=== PATIENT | female | born 1945 | race African-American/Black ===

== ENCOUNTER 2019-11-28 15:13 | Inpatient (IN) ==
[2019-11-28] MEDS ORDERED: ZALEPLON 5 MG CAPSULE PO PRN (16:21)
[2019-11-28] MEDS ORDERED: ONDANSETRON 4 MG/2 ML VIAL IV PRN (16:21)
[2019-11-28] MEDS ORDERED: ACETAMINOPHEN 325 MG TABLET PO PRN (16:21)
[2019-11-28] MEDS ORDERED: DOCUSATE SODIUM 100 MG CAPSULE PO PRN (16:21)
[2019-11-28] MEDS ORDERED: ALUMINUM/MAGNES/SIMETH MAX STR 30 ML UDCUP PO PRN (16:21)
[2019-11-28] MEDS: hydrALAZINE 20 MG/1 ML VIAL IV PRN ×2 (17:03→20:50)
[2019-11-28] MEDS ORDERED: NITROGLYCERIN SL 0.4 MG TABLET SL PRN (18:32)
[2019-11-28] MEDS ORDERED: niCARdipine INJ 50 MG in SODIUM CHLORIDE 0.9% 230 ML IV PRN (21:34)
[2019-11-28] MEDS ORDERED: niCARdipine 25 MG/10 ML VIAL IV ONE (21:46)
[2019-11-28] MEDS: BUMETANIDE 1 MG TABLET PO SCH (22:44)
[2019-11-29 00:39] LABS: Basophils # 0.1 10*3/uL (0.0-0.2); Basophils % 0.7 % (0.0-0.8); Eosinophils % 0.3 % (0.00-10.9); Hematocrit 28.7 VOL% (35.7-47.0); Hemoglobin 8.9 GM/DL (12.0-16.0); Immature Granulocytes % 0.9 %; Immature Granulocytes Absolute 0.11 #; Lymphocytes # 0.7 10*3/uL (1.4-4.0); Lymphocytes % 5.8 % (21.3-54.2); Mean Corpuscular Volume 80.2 FL (87-102); Mean Platelet Volume 9.5 FL (9.6-12.0); Monocytes % 3.8 % (1.7-12.7); Neutrophils % 88.5 % (38.7-73.9); Platelet Count 275 T/CUMM (130-400); Red Blood Count 3.58 MC/CUMM (3.8-5.5); Red Cell Distribution Width 18.4 % (9.3-17.3); White Blood Count 11.6 T/CUMM (4-12)
[2019-11-29 00:47] LABS: INR 0.9; PT Patient Result 10.3 SECS (9.6-12.2)
[2019-11-29 00:59] LABS: Albumin 3.7 G/DL (3.4-5.0); Bilirubin,Total 0.4 MG/DL (0.2-1.0); Calcium 9.4 MG/DL (8.5-10.1); Osmolality,Calculated 284.2 MOS/KG (273-304); Total Protein 8.1 G/DL (6.4-8.3)
[2019-11-29] MEDS ORDERED: ceFAZolin 1,000 MG in SYRINGE 1 EACH IV ONE (06:00)
[2019-11-29] MEDS ORDERED: VANCOMYCIN INJ 1,000 MG in SODIUM CHLORIDE 0.9% 250 ML IV ONE (06:00)
[2019-11-29] MEDS ORDERED: HEPARIN 5,000 UNIT/1 ML VIAL ONE (08:32)
[2019-11-29] MEDS ORDERED: BUPIVACAINE 0.25% /EPI 10 ML VIAL ONE (08:32)
[2019-11-29] MEDS ORDERED: LIDOCAINE 1%/EPI INJ 20 ML VIAL ONE (08:33)
[2019-11-29] MEDS ORDERED: LEVOTHYROXINE 100 MCG TABLET PO SCH (09:00)
[2019-11-29] MEDS ORDERED: fentaNYL 100 MCG/2 ML VIAL ONE (10:00)
[2019-11-29] MEDS ORDERED: propofoL 200 MG/20 ML VIAL IV ONE (10:00)
[2019-11-29] MEDS ORDERED: MIDAZOLAM 2 MG/2 ML VIAL ONE (10:00)
[2019-11-29 11:01] LABS: Hepatitis B Core IgM Quant 0.13 Index; Hepatitis B Surface Ag Quant < 0.10 Index; Hepatitis B Surface Ag Result Negative (Negative); Hepatitis C Virus Ab Quant 0.03 Index; Hepatitis C Virus Ab Result Negative (Negative)
[2019-11-29] MEDS: ISOSORBIDE MONONITRATE 60 MG TABLET PO SCH (11:05)
[2019-11-29] MEDS: BUMETANIDE 1 MG TABLET PO SCH ×2 (11:05→21:20)
[2019-11-29] MEDS: ASPIRIN EC 81 MG TABLET PO SCH (11:06)
[2019-11-29] MEDS: FUROSEMIDE 40 MG TABLET PO SCH (11:06)
[2019-11-29] MEDS: PANTOPRAZOLE 40 MG TABLET PO SCH (11:06)
[2019-11-29] MEDS ORDERED: HEPARIN 10,000 UNIT/10 ML VIAL IV SCH (14:00)
[2019-11-30 05:48] LABS: Basophils # 0.1 10*3/uL (0.0-0.2); Basophils % 0.7 % (0.0-0.8); Eosinophils # 0.2 10*3/uL (0.0-0.87); Eosinophils % 2.7 % (0.00-10.9); Hemoglobin 8.2 GM/DL (12.0-16.0); Immature Granulocytes % 0.4 %; Immature Granulocytes Absolute 0.03 #; Lymphocytes # 0.8 10*3/uL (1.4-4.0); Lymphocytes % 11.4 % (21.3-54.2); Mean Corpuscular HGB Conc 31.5 GM/DL (32-36); Mean Platelet Volume 10.7 FL (9.6-12.0); Monocytes % 8.9 % (1.7-12.7); Neutrophils % 75.9 % (38.7-73.9); Platelet Count 262 T/CUMM (130-400); Red Blood Count 3.25 MC/CUMM (3.8-5.5); Red Cell Distribution Width 18.6 % (9.3-17.3); White Blood Count 7.3 T/CUMM (4-12)
[2019-11-30 06:09] LABS: Calcium 8.8 MG/DL (8.5-10.1); Osmolality,Calculated 277.1 MOS/KG (273-304)
[2019-11-30] MEDS: BUMETANIDE 1 MG TABLET PO SCH ×2 (08:34→20:20)
[2019-11-30] MEDS: PANTOPRAZOLE 40 MG TABLET PO SCH (08:34)
[2019-11-30] MEDS: ISOSORBIDE MONONITRATE 60 MG TABLET PO SCH (08:35)
[2019-11-30] MEDS: FUROSEMIDE 40 MG TABLET PO SCH (08:35)
[2019-11-30] MEDS: ASPIRIN EC 81 MG TABLET PO SCH (08:35)
[2019-12-01] MEDS ORDERED: LEVOTHYROXINE 100 MCG TABLET PO SCH (06:30)
[2019-12-01 07:05] LABS: Basophils # 0.1 10*3/uL (0.0-0.2); Basophils % 0.9 % (0.0-0.8); Eosinophils # 0.3 10*3/uL (0.0-0.87); Eosinophils % 4.4 % (0.00-10.9); Hematocrit 29.4 VOL% (35.7-47.0); Hemoglobin 9.2 GM/DL (12.0-16.0); Immature Granulocytes % 0.5 %; Immature Granulocytes Absolute 0.03 #; Lymphocytes # 1.4 10*3/uL (1.4-4.0); Lymphocytes % 20.8 % (21.3-54.2); Mean Corpuscular HGB Conc 31.3 GM/DL (32-36); Mean Corpuscular Volume 79.2 FL (87-102); Mean Platelet Volume 10.5 FL (9.6-12.0); Monocytes % 10.9 % (1.7-12.7); Neutrophils % 62.5 % (38.7-73.9); Platelet Count 245 T/CUMM (130-400); Red Blood Count 3.71 MC/CUMM (3.8-5.5); Red Cell Distribution Width 18.3 % (9.3-17.3); White Blood Count 6.6 T/CUMM (4-12)
[2019-12-01 07:25] LABS: Calcium 9.3 MG/DL (8.5-10.1); Osmolality,Calculated 262.9 MOS/KG (273-304)
[2019-12-01] MEDS ORDERED: amLODIPine 2.5 MG TABLET PO SCH (09:00)
[2019-12-01] MEDS: ASPIRIN EC 81 MG TABLET PO SCH (13:11)
[2019-12-01] MEDS: FUROSEMIDE 40 MG TABLET PO SCH (13:11)
[2019-12-01] MEDS: ISOSORBIDE MONONITRATE 60 MG TABLET PO SCH (13:11)
[2019-12-01 14:51] VITALS: BP 150/92
== END 2019-12-01 15:24 | disposition home health service (06) | DRG 291 ==
LOC: SUATTDRO 15:31 → N.5E 15:31 → N.ICU 21:42 → N.5E 11-29 14:41
PROVIDERS: ADMIT Internal Medicine; ATTEND Internal Medicine Cardiovascular Disease

== ENCOUNTER 2022-01-22 06:58 | Inpatient (IN) ==
[~2022-01-22 06:58] MED LIST: VANCOMYCIN 1,000 MG VIAL ONE
[2022-01-22] MEDS ORDERED: HEPARIN 5,000 UNIT/1 ML VIAL ONE (07:27)
[2022-01-22] MEDS ORDERED: LIDOCAINE 1%/EPI INJ 20 ML VIAL ONE (07:29)
[2022-01-22] MEDS ORDERED: BUPIVACAINE MPF 0.25% 30 ML VIAL ONE (07:29)
[2022-01-22 07:30] LABS: Basophils # 0.1 10*3/uL (0.0-0.2); Basophils % 0.8 % (0.0-0.8); Eosinophils # 0.2 10*3/uL (0.0-0.87); Eosinophils % 2.7 % (0.00-10.9); Hematocrit 31.7 VOL% (35.7-47.0); Hemoglobin 10.3 GM/DL (12.0-16.0); Immature Granulocytes % 0.5 %; Immature Granulocytes Absolute 0.03 #; Lymphocytes # 2.1 10*3/uL (1.4-4.0); Mean Corpuscular HGB Conc 32.5 GM/DL (32-36); Mean Corpuscular Volume 88.1 FL (87-102); Mean Platelet Volume 10.3 FL (9.6-12.0); Monocytes # 0.7 10*3/uL (0.11-0.8); Monocytes % 10.4 % (1.7-12.7); Neutrophils % 51.6 % (38.7-73.9); Platelet Count 189 T/CUMM (130-400); Red Cell Distribution Width 16.3 % (9.3-17.3); White Blood Count 6.3 T/CUMM (4-12)
[2022-01-22 07:56] LABS: Calcium 9.5 MG/DL (8.5-10.1); Osmolality,Calculated 283.2 MOS/KG (273-304); Potassium 3.3 MMOL/L (3.5-5.1)
[2022-01-22] MEDS ORDERED: fentaNYL 100 MCG/2 ML VIAL ONE (08:28)
[2022-01-22] MEDS ORDERED: SODIUM CHLORIDE 0.9% 250 ML IV ONE (08:28)
[2022-01-22] MEDS ORDERED: ETOMIDATE 40 MG/20 ML VIAL IV ONE (08:28)
[2022-01-22] MEDS ORDERED: propofoL 200 MG/20 ML VIAL IV ONE (08:28)
[2022-01-22] MEDS ORDERED: LIDOCAINE 2% 5 ML VIAL ONE (08:28)
[2022-01-22] MEDS ORDERED: MIDAZOLAM 2 MG/2 ML VIAL ONE (08:28)
[2022-01-22] MEDS ORDERED: GLUCAGON 1 MG VIAL IM PRN (11:41)
[2022-01-22] MEDS ORDERED: ONDANSETRON 4 MG/2 ML VIAL IV PRN (11:41)
[2022-01-22] MEDS ORDERED: DEXTROSE 10% 250 ML BAG IV PRN (11:47)
[2022-01-22] MEDS ORDERED: POTASSIUM CHLORIDE 20 MEQ TABLET PO ONE (12:06)
[2022-01-22] MEDS ORDERED: HEPARIN LOCK FLUSH 500 UNIT/5 ML SYRINGE IV STA (13:06)
[2022-01-22] MEDS ORDERED: HEPARIN LOCK FLUSH 500 UNIT/5 ML SYRINGE IV ONE (13:07)
[2022-01-22] MEDS: SODIUM CHLORIDE 0.9% 250 ML IV SCH (13:21)
[2022-01-22 13:48] LABS: Free T4 (Free Thyroxine) 1.01 NG/DL (0.76-1.46); Thyroid Stimulating Hormone 2.23 uIU/ml (0.358-3.74)
[2022-01-23] MEDS: ACETAMINOPHEN 325 MG TABLET PO PRN ×2 (04:17→12:54)
[2022-01-23 05:31] LABS: Basophils # 0.1 10*3/uL (0.0-0.2); Basophils % 1.2 % (0.0-0.8); Eosinophils # 0.2 10*3/uL (0.0-0.87); Eosinophils % 3.6 % (0.00-10.9); Hematocrit 31.9 VOL% (35.7-47.0); Hemoglobin 10.4 GM/DL (12.0-16.0); Immature Granulocytes % 0.7 %; Immature Granulocytes Absolute 0.04 #; Lymphocytes # 1.6 10*3/uL (1.4-4.0); Lymphocytes % 27.7 % (21.3-54.2); Mean Corpuscular HGB Conc 32.6 GM/DL (32-36); Mean Corpuscular Volume 87.9 FL (87-102); Mean Platelet Volume 11.4 FL (9.6-12.0); Monocytes # 0.6 10*3/uL (0.11-0.8); Monocytes % 10.6 % (1.7-12.7); Neutrophils % 56.2 % (38.7-73.9); Platelet Count 202 T/CUMM (130-400); Red Blood Count 3.63 MC/CUMM (3.8-5.5); Red Cell Distribution Width 16.1 % (9.3-17.3); White Blood Count 5.8 T/CUMM (4-12)
[2022-01-23 05:47] LABS: Calcium 9.2 MG/DL (8.5-10.1); Osmolality,Calculated 281.5 MOS/KG (273-304); Potassium 4.2 MMOL/L (3.5-5.1)
[2022-01-23] MEDS: PANTOPRAZOLE 40 MG TABLET PO SCH (06:08)
[2022-01-23] MEDS: SODIUM CHLORIDE 0.9% 250 ML IV SCH (09:38)
[2022-01-23] MEDS ORDERED: HEPARIN 10,000 UNIT/10 ML VIAL IV SCH (12:00)
[2022-01-24] MEDS: PANTOPRAZOLE 40 MG TABLET PO SCH (05:35)
[2022-01-24 05:41] LABS: Basophils # 0.1 10*3/uL (0.0-0.2); Basophils % 0.9 % (0.0-0.8); Eosinophils # 0.2 10*3/uL (0.0-0.87); Hematocrit 31.8 VOL% (35.7-47.0); Hemoglobin 10.4 GM/DL (12.0-16.0); Immature Granulocytes % 0.4 %; Immature Granulocytes Absolute 0.02 #; Lymphocytes # 1.3 10*3/uL (1.4-4.0); Lymphocytes % 22.5 % (21.3-54.2); Mean Corpuscular HGB Conc 32.7 GM/DL (32-36); Mean Corpuscular Volume 88.3 FL (87-102); Mean Platelet Volume 11.1 FL (9.6-12.0); Monocytes # 0.7 10*3/uL (0.11-0.8); Monocytes % 12.3 % (1.7-12.7); Neutrophils % 60.9 % (38.7-73.9); Platelet Count 186 T/CUMM (130-400); Red Cell Distribution Width 16.2 % (9.3-17.3); White Blood Count 5.6 T/CUMM (4-12)
[2022-01-24] MEDS: SODIUM CHLORIDE 0.9% 250 ML IV SCH (05:56)
[2022-01-24 05:58] LABS: Calcium 9.5 MG/DL (8.5-10.1); Osmolality,Calculated 270.5 MOS/KG (273-304); Potassium 3.7 MMOL/L (3.5-5.1)
[2022-01-24] MEDS: ACETAMINOPHEN 325 MG TABLET PO PRN ×2 (08:54→20:42)
[2022-01-25] MEDS: PANTOPRAZOLE 40 MG TABLET PO SCH (05:28)
[2022-01-25] MEDS: SODIUM CHLORIDE 0.9% 250 ML IV SCH ×3 (09:07→23:11)
[2022-01-25 10:06] LABS: Basophils # 0.1 10*3/uL (0.0-0.2); Basophils % 1.1 % (0.0-0.8); Eosinophils # 0.1 10*3/uL (0.0-0.87); Eosinophils % 1.3 % (0.00-10.9); Hematocrit 30.7 VOL% (35.7-47.0); Hemoglobin 10.2 GM/DL (12.0-16.0); Immature Granulocytes % 0.3 %; Immature Granulocytes Absolute 0.02 #; Lymphocytes # 1.1 10*3/uL (1.4-4.0); Lymphocytes % 18.5 % (21.3-54.2); Mean Corpuscular HGB Conc 33.2 GM/DL (32-36); Mean Corpuscular Volume 87.7 FL (87-102); Mean Platelet Volume 10.6 FL (9.6-12.0); Monocytes # 0.5 10*3/uL (0.11-0.8); Monocytes % 8.6 % (1.7-12.7); Neutrophils % 70.2 % (38.7-73.9); Platelet Count 184 T/CUMM (130-400); Red Cell Distribution Width 16.3 % (9.3-17.3); White Blood Count 6.2 T/CUMM (4-12)
[2022-01-25 10:24] LABS: Calcium 9.6 MG/DL (8.5-10.1); Osmolality,Calculated 270.8 MOS/KG (273-304); Potassium 4.4 MMOL/L (3.5-5.1)
[2022-01-25 10:39] LABS: % Iron Saturation 28.1 % (18-50)
[2022-01-25 11:08] LABS: Platelet Estimate Adequate
[2022-01-25] MEDS: ACETAMINOPHEN 325 MG TABLET PO PRN (16:43)
[2022-01-25] MEDS: MEGESTROL 40 MG TABLET PO SCH (20:34)
[2022-01-26 05:27] LABS: Basophils # 0.1 10*3/uL (0.0-0.2); Basophils % 1.1 % (0.0-0.8); Eosinophils # 0.2 10*3/uL (0.0-0.87); Eosinophils % 3.3 % (0.00-10.9); Hematocrit 29.7 VOL% (35.7-47.0); Hemoglobin 9.7 GM/DL (12.0-16.0); Immature Granulocytes % 0.5 %; Immature Granulocytes Absolute 0.03 #; Lymphocytes # 1.6 10*3/uL (1.4-4.0); Lymphocytes % 25.7 % (21.3-54.2); Mean Corpuscular HGB Conc 32.7 GM/DL (32-36); Mean Corpuscular Volume 86.8 FL (87-102); Mean Platelet Volume 10.8 FL (9.6-12.0); Monocytes # 0.7 10*3/uL (0.11-0.8); Monocytes % 11.2 % (1.7-12.7); Neutrophils % 58.2 % (38.7-73.9); Platelet Count 213 T/CUMM (130-400); Red Blood Count 3.42 MC/CUMM (3.8-5.5); White Blood Count 6.4 T/CUMM (4-12)
[2022-01-26 05:43] LABS: Calcium 9.5 MG/DL (8.5-10.1); Osmolality,Calculated 281.2 MOS/KG (273-304); Potassium 4.1 MMOL/L (3.5-5.1)
[2022-01-26] MEDS: PANTOPRAZOLE 40 MG TABLET PO SCH (05:51)
[2022-01-26] MEDS: MEGESTROL 40 MG TABLET PO SCH (13:35)
[2022-01-26] MEDS: ACETAMINOPHEN 325 MG TABLET PO PRN (13:37)
[2022-01-26 13:56] LABS: Basophils # 0.1 10*3/uL (0.0-0.2); Basophils % 0.8 % (0.0-0.8); Eosinophils # 0.1 10*3/uL (0.0-0.87); Eosinophils % 0.8 % (0.00-10.9); Hematocrit 32.1 VOL% (35.7-47.0); Hemoglobin 10.5 GM/DL (12.0-16.0); Immature Granulocytes % 2.2 %; Immature Granulocytes Absolute 0.14 #; Lymphocytes # 0.8 10*3/uL (1.4-4.0); Lymphocytes % 13.1 % (21.3-54.2); Mean Corpuscular HGB Conc 32.7 GM/DL (32-36); Mean Corpuscular Volume 87.5 FL (87-102); Mean Platelet Volume 10.5 FL (9.6-12.0); Monocytes # 0.5 10*3/uL (0.11-0.8); Monocytes % 8.1 % (1.7-12.7); Platelet Count 230 T/CUMM (130-400); Red Blood Count 3.67 MC/CUMM (3.8-5.5); Red Cell Distribution Width 16.2 % (9.3-17.3); White Blood Count 6.3 T/CUMM (4-12)
[2022-01-26 17:06] VITALS: BP 123/75
== END 2022-01-26 16:50 | disposition home health service (06) | DRG 264 ==
LOC: N.SDSINP 06:58 → N.OR 06:58 → N.SDSINP 07:00 → SUATTDRO 11:41 → N.TELES 13:50
PROVIDERS: ADMIT Internal Medicine; ATTEND Internal Medicine
PROC: VAVDCFI (2022-01-22 08:04)

== ENCOUNTER 2022-02-06 09:55 | Inpatient (IN) ==
[2022-02-06] MEDS ORDERED: ASPIRIN 325 MG TABLET PO STA (11:20)
[2022-02-06 11:26] LABS: Basophils # 0.1 10*3/uL (0.0-0.2); Basophils % 0.8 % (0.0-0.8); Eosinophils # 0.1 10*3/uL (0.0-0.87); Eosinophils % 1.4 % (0.00-10.9); Hematocrit 26.4 VOL% (35.7-47.0); Hemoglobin 8.8 GM/DL (12.0-16.0); Immature Granulocytes % 0.5 %; Immature Granulocytes Absolute 0.04 #; Lymphocytes # 1.4 10*3/uL (1.4-4.0); Lymphocytes % 16.2 % (21.3-54.2); Mean Corpuscular HGB Conc 33.3 GM/DL (32-36); Mean Platelet Volume 10.4 FL (9.6-12.0); Monocytes # 0.8 10*3/uL (0.11-0.8); Monocytes % 9.3 % (1.7-12.7); NRBC # 0.03 10*3/uL; Neutrophils % 71.8 % (38.7-73.9); Platelet Count 321 T/CUMM (130-400); Red Cell Distribution Width 19.2 % (9.3-17.3); White Blood Count 8.3 T/CUMM (4-12)
[2022-02-06 11:40] LABS: Bilirubin,Total 1.5 MG/DL (0.20-1.00); Calcium 9.1 MG/DL (8.5-10.1); Osmolality,Calculated 278.1 MOS/KG (273-304); Potassium 4.4 MMOL/L (3.5-5.1); Total Protein 7.4 G/DL (6.4-8.2)
[2022-02-06 11:54] LABS: PT Patient Result 11.4 SECS (10.5-12.0); Partial Thromboplastin Time 22.8 SECS (23.8-32.1)
[2022-02-06] MEDS ORDERED: GLUCAGON 1 MG VIAL IM PRN (14:38)
[2022-02-06] MEDS ORDERED: NITROGLYCERIN SL 0.4 MG TABLET SL PRN (14:41)
[2022-02-06] MEDS ORDERED: DEXTROSE 10% 250 ML BAG IV PRN (14:48)
[2022-02-06] MEDS: SEVELAMER CARBONATE 800 MG TABLET PO SCH (21:54)
[2022-02-07] MEDS ORDERED: EPOETIN ALFA-EPBX 4,000 UNIT/ML VIAL IV PRN (10:35)
[2022-02-07] MEDS: ASPIRIN EC 81 MG TABLET PO SCH (10:54)
[2022-02-07] MEDS: ATORVASTATIN 40 MG TABLET PO SCH (10:55)
[2022-02-07] MEDS: CLOPIDOGREL 75 MG TABLET PO SCH (10:55)
[2022-02-07] MEDS: PANTOPRAZOLE 40 MG TABLET PO SCH (10:55)
[2022-02-07] MEDS: ISOSORBIDE MONONITRATE 30 MG TABLET PO SCH (10:55)
[2022-02-07] MEDS: SEVELAMER CARBONATE 800 MG TABLET PO SCH ×3 (10:55→20:47)
[2022-02-07] MEDS ORDERED: HEPARIN 10,000 UNIT/10 ML VIAL IV PRN (15:25)
[2022-02-07] MEDS: ONDANSETRON 4 MG/2 ML VIAL IV PRN ×2 (16:41→20:47)
[2022-02-08] MEDS: PANTOPRAZOLE 40 MG TABLET PO SCH (05:43)
[2022-02-08 06:25] LABS: Basophils # 0.1 10*3/uL (0.0-0.2); Basophils % 0.7 % (0.0-0.8); Eosinophils # 0.1 10*3/uL (0.0-0.87); Eosinophils % 0.8 % (0.00-10.9); Hematocrit 27.6 VOL% (35.7-47.0); Hemoglobin 9.1 GM/DL (12.0-16.0); Immature Granulocytes % 0.7 %; Immature Granulocytes Absolute 0.07 #; Lymphocytes # 1.5 10*3/uL (1.4-4.0); Lymphocytes % 15.8 % (21.3-54.2); Mean Corpuscular Volume 88.5 FL (87-102); Mean Platelet Volume 10.5 FL (9.6-12.0); Platelet Count 301 T/CUMM (130-400); Red Blood Count 3.12 MC/CUMM (3.8-5.5); White Blood Count 9.7 T/CUMM (4-12)
[2022-02-08 06:42] LABS: Albumin 2.9 G/DL (3.4-5.0); Bilirubin,Total 0.7 MG/DL (0.20-1.00); Calcium 9.4 MG/DL (8.5-10.1); Potassium 4.5 MMOL/L (3.5-5.1); Risk Ratio 1.98; Total Protein 7.4 G/DL (6.4-8.2); VLDL Cholesterol 14.6 MG/DL
[2022-02-08] MEDS: SEVELAMER CARBONATE 800 MG TABLET PO SCH ×3 (09:35→21:48)
[2022-02-08] MEDS: ATORVASTATIN 40 MG TABLET PO SCH (09:35)
[2022-02-08] MEDS: CLOPIDOGREL 75 MG TABLET PO SCH (09:35)
[2022-02-08] MEDS: ASPIRIN EC 81 MG TABLET PO SCH (09:35)
[2022-02-08] MEDS: ISOSORBIDE MONONITRATE 30 MG TABLET PO SCH (09:35)
[2022-02-08] MEDS ORDERED: METOPROLOL TARTRATE 25 MG TABLET PO SCH (10:41)
[2022-02-08] MEDS: METOPROLOL TARTRATE 25 MG TABLET PO SCH (21:48)
[2022-02-08] MEDS: MEGESTROL 40 MG TABLET PO SCH (21:48)
[2022-02-09 05:16] LABS: Basophils # 0.1 10*3/uL (0.0-0.2); Basophils % 0.7 % (0.0-0.8); Eosinophils # 0.2 10*3/uL (0.0-0.87); Eosinophils % 2.1 % (0.00-10.9); Hematocrit 26.2 VOL% (35.7-47.0); Hemoglobin 8.5 GM/DL (12.0-16.0); Immature Granulocytes % 0.6 %; Immature Granulocytes Absolute 0.05 #; Lymphocytes # 1.3 10*3/uL (1.4-4.0); Lymphocytes % 15.6 % (21.3-54.2); Mean Corpuscular HGB Conc 32.4 GM/DL (32-36); Mean Corpuscular Volume 88.8 FL (87-102); Mean Platelet Volume 9.5 FL (9.6-12.0); Monocytes % 12.3 % (1.7-12.7); Neutrophils % 68.7 % (38.7-73.9); Platelet Count 267 T/CUMM (130-400); Red Blood Count 2.95 MC/CUMM (3.8-5.5); Red Cell Distribution Width 19.7 % (9.3-17.3)
[2022-02-09 05:32] LABS: Calcium 9.5 MG/DL (8.5-10.1)
[2022-02-09 05:37] LABS: Albumin 2.7 G/DL (3.4-5.0); Bilirubin,Total 0.7 MG/DL (0.20-1.00); Calcium 9.5 MG/DL (8.5-10.1); Osmolality,Calculated 277.1 MOS/KG (273-304); Total Protein 6.6 G/DL (6.4-8.2)
[2022-02-09 05:42] LABS: Free T4 (Free Thyroxine) 0.81 NG/DL (0.76-1.46); Phosphorous 3.8 MG/DL (2.5-4.9)
[2022-02-09] MEDS: PANTOPRAZOLE 40 MG TABLET PO SCH (05:57)
[2022-02-09] MEDS: POLYETHYLENE GLYCOL POWDER 17 GM PACK PO SCH (08:47)
[2022-02-09] MEDS: ATORVASTATIN 40 MG TABLET PO SCH (08:47)
[2022-02-09] MEDS: SEVELAMER CARBONATE 800 MG TABLET PO SCH ×3 (08:47→20:59)
[2022-02-09] MEDS: ASPIRIN EC 81 MG TABLET PO SCH (08:47)
[2022-02-09] MEDS: MEGESTROL 40 MG TABLET PO SCH ×2 (08:47→20:59)
[2022-02-09] MEDS: CLOPIDOGREL 75 MG TABLET PO SCH (08:47)
[2022-02-09] MEDS: ISOSORBIDE MONONITRATE 30 MG TABLET PO SCH (09:47)
[2022-02-09] MEDS: METOPROLOL TARTRATE 25 MG TABLET PO SCH ×2 (09:47→20:59)
[2022-02-09] MEDS: ONDANSETRON 4 MG/2 ML VIAL IV PRN ×2 (10:50→17:28)
[2022-02-09] MEDS ORDERED: MORPHINE 2 MG/1 ML SYRINGE IV ONE (11:02)
[2022-02-09] MEDS ORDERED: NITROGLYCERIN 2% OINT 1 INCH/GM PACK TOP ONE (17:53)
[2022-02-09] MEDS ORDERED: PROMETHAZINE 25 MG/1 ML VIAL IM PRN (18:02)
[2022-02-10 05:42] LABS: Basophils # 0.1 10*3/uL (0.0-0.2); Basophils % 0.7 % (0.0-0.8); Eosinophils # 0.2 10*3/uL (0.0-0.87); Eosinophils % 1.9 % (0.00-10.9); Hematocrit 26.7 VOL% (35.7-47.0); Hemoglobin 8.4 GM/DL (12.0-16.0); Immature Granulocytes % 0.5 %; Immature Granulocytes Absolute 0.04 #; Lymphocytes # 1.4 10*3/uL (1.4-4.0); Lymphocytes % 17.2 % (21.3-54.2); Mean Corpuscular HGB Conc 31.5 GM/DL (32-36); Mean Corpuscular Volume 91.1 FL (87-102); Mean Platelet Volume 9.9 FL (9.6-12.0); Monocytes # 1.1 10*3/uL (0.11-0.8); Monocytes % 13.2 % (1.7-12.7); Neutrophils % 66.5 % (38.7-73.9); Platelet Count 272 T/CUMM (130-400); Red Blood Count 2.93 MC/CUMM (3.8-5.5); Red Cell Distribution Width 20.4 % (9.3-17.3)
[2022-02-10 05:58] LABS: Calcium 9.7 MG/DL (8.5-10.1); Osmolality,Calculated 273.8 MOS/KG (273-304); Potassium 4.7 MMOL/L (3.5-5.1)
[2022-02-10 06:00] LABS: Albumin 2.9 G/DL (3.4-5.0); Bilirubin,Total 0.5 MG/DL (0.20-1.00); Calcium 9.7 MG/DL (8.5-10.1); Potassium 4.4 MMOL/L (3.5-5.1)
[2022-02-10] MEDS: PANTOPRAZOLE 40 MG TABLET PO SCH (06:02)
[2022-02-10] MEDS: ASPIRIN EC 81 MG TABLET PO SCH (09:33)
[2022-02-10] MEDS: SEVELAMER CARBONATE 800 MG TABLET PO SCH ×3 (09:33→21:39)
[2022-02-10] MEDS: CLOPIDOGREL 75 MG TABLET PO SCH (09:33)
[2022-02-10] MEDS: ATORVASTATIN 40 MG TABLET PO SCH (09:33)
[2022-02-10] MEDS: POLYETHYLENE GLYCOL POWDER 17 GM PACK PO SCH (09:38)
[2022-02-10] MEDS: ISOSORBIDE MONONITRATE 30 MG TABLET PO SCH (09:57)
[2022-02-10] MEDS: METOPROLOL TARTRATE 25 MG TABLET PO SCH ×2 (09:57→21:38)
[2022-02-10] MEDS: MEGESTROL 40 MG TABLET PO SCH ×2 (09:57→21:38)
[2022-02-11 05:09] LABS: Basophils # 0.1 10*3/uL (0.0-0.2); Eosinophils # 0.2 10*3/uL (0.0-0.87); Hematocrit 27.2 VOL% (35.7-47.0); Hemoglobin 8.8 GM/DL (12.0-16.0); Immature Granulocytes % 0.3 %; Immature Granulocytes Absolute 0.02 #; Lymphocytes # 1.4 10*3/uL (1.4-4.0); Lymphocytes % 20.1 % (21.3-54.2); Mean Corpuscular HGB Conc 32.4 GM/DL (32-36); Mean Corpuscular Volume 90.7 FL (87-102); Mean Platelet Volume 9.9 FL (9.6-12.0); Monocytes # 0.9 10*3/uL (0.11-0.8); Monocytes % 13.3 % (1.7-12.7); NRBC # 0.08 10*3/uL; Neutrophils % 62.3 % (38.7-73.9); Platelet Count 282 T/CUMM (130-400); Red Cell Distribution Width 20.2 % (9.3-17.3)
[2022-02-11 05:23] LABS: Calcium 9.3 MG/DL (8.5-10.1); Osmolality,Calculated 274.1 MOS/KG (273-304); Potassium 4.5 MMOL/L (3.5-5.1)
[2022-02-11 05:38] LABS: Bilirubin,Total 0.5 MG/DL (0.20-1.00); Calcium 9.6 MG/DL (8.5-10.1); Potassium 4.9 MMOL/L (3.5-5.1); Total Protein 6.7 G/DL (6.4-8.2)
[2022-02-11 05:39] LABS: Albumin 2.8 G/DL (3.4-5.0); Osmolality,Calculated 272.1 MOS/KG (273-304)
[2022-02-11] MEDS: PANTOPRAZOLE 40 MG TABLET PO SCH (05:55)
[2022-02-11] MEDS ORDERED: diphenhydrAMINE CAP 25 MG CAPSULE PO ONE (07:52)
[2022-02-11] MEDS ORDERED: DIAZEPAM 5 MG TABLET PO ONE (07:52)
[2022-02-11] MEDS ORDERED: ASPIRIN EC 81 MG TABLET PO SCH (09:00)
[2022-02-11] MEDS: ISOSORBIDE MONONITRATE 30 MG TABLET PO SCH (10:20)
[2022-02-11] MEDS: MEGESTROL 40 MG TABLET PO SCH ×2 (10:20→21:53)
[2022-02-11] MEDS: CLOPIDOGREL 75 MG TABLET PO SCH (10:20)
[2022-02-11] MEDS: SEVELAMER CARBONATE 800 MG TABLET PO SCH ×3 (10:20→21:53)
[2022-02-11] MEDS: ATORVASTATIN 40 MG TABLET PO SCH (10:21)
[2022-02-11] MEDS: ASPIRIN EC 81 MG TABLET PO SCH (10:21)
[2022-02-11] MEDS: METOPROLOL TARTRATE 25 MG TABLET PO SCH ×2 (10:22→21:52)
[2022-02-11] MEDS ORDERED: HEPARIN/NACL 0.9% 2 UNITS/ML 2,000 UNIT/1,000 ML BAG IV ONE (15:19)
[2022-02-11] MEDS ORDERED: MIDAZOLAM 2 MG/2 ML VIAL ONE (15:46)
[2022-02-11] MEDS ORDERED: HYDROmorphone 1 MG/1 ML SYRINGE ONE (15:48)
[2022-02-11] MEDS ORDERED: diphenhydrAMINE 50 MG/1 ML VIAL ONE (15:56)
[2022-02-11] MEDS: POLYETHYLENE GLYCOL POWDER 17 GM PACK PO SCH (16:22)
[2022-02-11] MEDS ORDERED: ZALEPLON 5 MG CAPSULE PO PRN (16:54)
[2022-02-11] MEDS: ONDANSETRON 4 MG/2 ML VIAL IV PRN (21:58)
[2022-02-12 05:48] LABS: Basophils # 0.1 10*3/uL (0.0-0.2); Basophils % 1.2 % (0.0-0.8); Eosinophils # 0.1 10*3/uL (0.0-0.87); Eosinophils % 1.5 % (0.00-10.9); Hematocrit 27.9 VOL% (35.7-47.0); Hemoglobin 8.9 GM/DL (12.0-16.0); Immature Granulocytes % 0.4 %; Immature Granulocytes Absolute 0.03 #; Lymphocytes % 14.6 % (21.3-54.2); Mean Corpuscular HGB Conc 31.9 GM/DL (32-36); Mean Corpuscular Volume 92.7 FL (87-102); Mean Platelet Volume 10.2 FL (9.6-12.0); Monocytes # 0.9 10*3/uL (0.11-0.8); Monocytes % 12.7 % (1.7-12.7); NRBC # 0.07 10*3/uL; Neutrophils % 69.6 % (38.7-73.9); Platelet Count 303 T/CUMM (130-400); Red Blood Count 3.01 MC/CUMM (3.8-5.5); Red Cell Distribution Width 20.9 % (9.3-17.3); White Blood Count 6.9 T/CUMM (4-12)
[2022-02-12 06:01] LABS: Calcium 9.3 MG/DL (8.5-10.1); Osmolality,Calculated 271.8 MOS/KG (273-304); Potassium 5.2 MMOL/L (3.5-5.1)
[2022-02-12 06:06] LABS: Bilirubin,Total 0.4 MG/DL (0.20-1.00); Calcium 9.1 MG/DL (8.5-10.1); Osmolality,Calculated 275.5 MOS/KG (273-304); Potassium 4.6 MMOL/L (3.5-5.1); Total Protein 6.9 G/DL (6.4-8.2)
[2022-02-12] MEDS: PANTOPRAZOLE 40 MG TABLET PO SCH (06:51)
[2022-02-12] MEDS: ATORVASTATIN 40 MG TABLET PO SCH (10:18)
[2022-02-12] MEDS: CLOPIDOGREL 75 MG TABLET PO SCH (10:19)
[2022-02-12] MEDS: ISOSORBIDE MONONITRATE 30 MG TABLET PO SCH (10:19)
[2022-02-12] MEDS: SEVELAMER CARBONATE 800 MG TABLET PO SCH ×3 (10:19→20:53)
[2022-02-12] MEDS: ASPIRIN EC 81 MG TABLET PO SCH (10:19)
[2022-02-12] MEDS: POLYETHYLENE GLYCOL POWDER 17 GM PACK PO SCH (10:19)
[2022-02-12] MEDS: MEGESTROL 40 MG TABLET PO SCH ×2 (10:19→20:54)
[2022-02-12] MEDS: METOPROLOL TARTRATE 25 MG TABLET PO SCH ×2 (10:20→20:54)
[2022-02-12] MEDS: ONDANSETRON 4 MG/2 ML VIAL IV PRN (20:50)
[2022-02-13 05:11] LABS: Basophils # 0.1 10*3/uL (0.0-0.2); Basophils % 0.6 % (0.0-0.8); Eosinophils # 0.1 10*3/uL (0.0-0.87); Eosinophils % 0.6 % (0.00-10.9); Hematocrit 27.3 VOL% (35.7-47.0); Hemoglobin 8.7 GM/DL (12.0-16.0); Immature Granulocytes % 0.3 %; Immature Granulocytes Absolute 0.03 #; Lymphocytes % 11.9 % (21.3-54.2); Mean Corpuscular HGB Conc 31.9 GM/DL (32-36); Mean Platelet Volume 9.9 FL (9.6-12.0); Monocytes # 0.8 10*3/uL (0.11-0.8); Monocytes % 9.6 % (1.7-12.7); NRBC # 0.08 10*3/uL; Platelet Count 314 T/CUMM (130-400); Red Cell Distribution Width 20.3 % (9.3-17.3); White Blood Count 8.7 T/CUMM (4-12)
[2022-02-13 05:30] LABS: Calcium 9.2 MG/DL (8.5-10.1); Osmolality,Calculated 268.5 MOS/KG (273-304); Potassium 4.4 MMOL/L (3.5-5.1)
[2022-02-13] MEDS: PANTOPRAZOLE 40 MG TABLET PO SCH (06:02)
[2022-02-13] MEDS: POLYETHYLENE GLYCOL POWDER 17 GM PACK PO SCH (08:40)
[2022-02-13] MEDS: SEVELAMER CARBONATE 800 MG TABLET PO SCH ×3 (08:40→20:59)
[2022-02-13] MEDS: ASPIRIN EC 81 MG TABLET PO SCH (08:40)
[2022-02-13] MEDS: CLOPIDOGREL 75 MG TABLET PO SCH (08:40)
[2022-02-13] MEDS: METOPROLOL TARTRATE 25 MG TABLET PO SCH (08:40)
[2022-02-13] MEDS: MEGESTROL 40 MG TABLET PO SCH ×2 (08:40→20:59)
[2022-02-13] MEDS: ATORVASTATIN 40 MG TABLET PO SCH (08:40)
[2022-02-13] MEDS: ISOSORBIDE MONONITRATE 30 MG TABLET PO SCH (08:40)
[2022-02-13] MEDS ORDERED: SODIUM CHLORIDE 0.9% 500 ML IV ONE (15:43)
[2022-02-13] MEDS ORDERED: SODIUM CHLORIDE 0.9% 250 ML IV ONE (17:36)
[2022-02-14] MEDS: PANTOPRAZOLE 40 MG TABLET PO SCH (06:06)
[2022-02-14 06:07] LABS: Calcium 9.2 MG/DL (8.5-10.1); Osmolality,Calculated 268.1 MOS/KG (273-304); Potassium 4.3 MMOL/L (3.5-5.1)
[2022-02-14] MEDS: MEGESTROL 40 MG TABLET PO SCH ×2 (08:48→21:06)
[2022-02-14] MEDS: ATORVASTATIN 40 MG TABLET PO SCH (08:48)
[2022-02-14] MEDS: SEVELAMER CARBONATE 800 MG TABLET PO SCH ×3 (08:48→21:06)
[2022-02-14] MEDS: POLYETHYLENE GLYCOL POWDER 17 GM PACK PO SCH (08:48)
[2022-02-14] MEDS: CLOPIDOGREL 75 MG TABLET PO SCH (08:49)
[2022-02-14] MEDS: ASPIRIN EC 81 MG TABLET PO SCH (08:49)
[2022-02-14] MEDS: ISOSORBIDE MONONITRATE 30 MG TABLET PO SCH (08:49)
[2022-02-14] MEDS: METOPROLOL TARTRATE 25 MG TABLET PO SCH ×2 (09:00→21:03)
[2022-02-15] MEDS: PANTOPRAZOLE 40 MG TABLET PO SCH (06:11)
[2022-02-15] MEDS: MEGESTROL 40 MG TABLET PO SCH ×2 (10:30→21:08)
[2022-02-15] MEDS: ISOSORBIDE MONONITRATE 30 MG TABLET PO SCH (10:30)
[2022-02-15] MEDS: ASPIRIN EC 81 MG TABLET PO SCH (10:31)
[2022-02-15] MEDS: SEVELAMER CARBONATE 800 MG TABLET PO SCH ×3 (10:31→21:09)
[2022-02-15] MEDS: CLOPIDOGREL 75 MG TABLET PO SCH (10:31)
[2022-02-15] MEDS: ATORVASTATIN 40 MG TABLET PO SCH (10:32)
[2022-02-15] MEDS: METOPROLOL TARTRATE 25 MG TABLET PO SCH (10:32)
[2022-02-15] MEDS: POLYETHYLENE GLYCOL POWDER 17 GM PACK PO SCH (10:37)
[2022-02-15] MEDS: ONDANSETRON 4 MG/2 ML VIAL IV PRN (17:02)
[2022-02-16] MEDS: METOPROLOL TARTRATE 25 MG TABLET PO SCH ×3 (00:37→21:16)
[2022-02-16] MEDS: PANTOPRAZOLE 40 MG TABLET PO SCH (06:10)
[2022-02-16] MEDS: ISOSORBIDE MONONITRATE 30 MG TABLET PO SCH (14:41)
[2022-02-16] MEDS: POLYETHYLENE GLYCOL POWDER 17 GM PACK PO SCH (14:42)
[2022-02-16] MEDS: MEGESTROL 40 MG TABLET PO SCH ×2 (14:42→21:16)
[2022-02-16] MEDS: SEVELAMER CARBONATE 800 MG TABLET PO SCH ×3 (14:42→21:17)
[2022-02-16] MEDS: ATORVASTATIN 40 MG TABLET PO SCH (14:59)
[2022-02-16] MEDS: CLOPIDOGREL 75 MG TABLET PO SCH (14:59)
[2022-02-16] MEDS: ASPIRIN EC 81 MG TABLET PO SCH (14:59)
[2022-02-17] MEDS: PANTOPRAZOLE 40 MG TABLET PO SCH (05:34)
[2022-02-17] MEDS: SEVELAMER CARBONATE 800 MG TABLET PO SCH (08:52)
[2022-02-17] MEDS: POLYETHYLENE GLYCOL POWDER 17 GM PACK PO SCH ×2 (08:52→08:57)
[2022-02-17] MEDS: ISOSORBIDE MONONITRATE 30 MG TABLET PO SCH (08:53)
[2022-02-17] MEDS: METOPROLOL TARTRATE 25 MG TABLET PO SCH (08:53)
[2022-02-17] MEDS: CLOPIDOGREL 75 MG TABLET PO SCH (08:53)
[2022-02-17] MEDS: ASPIRIN EC 81 MG TABLET PO SCH (08:53)
[2022-02-17] MEDS: ATORVASTATIN 40 MG TABLET PO SCH (08:53)
[2022-02-17] MEDS: MEGESTROL 40 MG TABLET PO SCH (08:55)
[2022-02-17 11:50] VITALS: BP 97/54
== END 2022-02-17 14:28 | disposition home health service (06) | DRG 64 ==
LOC: N.EDINP 09:55 → N.ED 09:55 → SUATTDRO 14:38 → N.5E 18:19 → SUATTDRO 02-07 09:48
PROVIDERS: ADMIT Internal Medicine; ATTEND Internal Medicine